=== PATIENT | female | born 1960 | race Two or more races ===

== ENCOUNTER 2020-09-27 06:20 | Day surgery (SDC) | payer OTHER ==
[~2020-09-27] VITALS: Ht 154.9 cm; Wt 59.4 kg
[2020-09-27] VITALS (11 sets, daily range): BP systolic 91–135; BP diastolic 59–82
[~2020-09-27 06:20] MED LIST: MULTI VITAMIN1 EACH ORAL; VITAMIN C500 M9 PO; VITAMIN D325 MC1 PO
[2020-09-27] MEDS ORDERED: LR 1000ml 1,000 ML IVLG SCH ×2 (07:00→08:45)
--- NOTE | 2020-09-27 07:16 | Short Stay Surgery H&P ---
History of Present Illness History of Present Illness Chief Complaint Patient is rema admitted for outpatient screening colonoscopy HPI Fiordaliza Juarez is a 60 year old female who was admitted on for Colon Screening Patient History Allergies: Coded Allergies: No Known Allergies (Unverified , 09/23/20) Medication History Scheduled Ascorbic Acid (Vitamin C), 500 MG PO DAILY, (Reported) Cholecalciferol (Vitamin D3) (Vitamin D3*), 25 MCG PO DAILY, (Reported) Multivitamin (Multi Vitamin Daily), 1 TAB ORAL DAILY, (Reported) Review of Systems Cardiovascular: Reports: no symptoms Respiratory: Reports: no symptoms Skeletal: Reports: no symptoms Gastrointestinal: Reports: no symptoms Genitourinary: Reports: no symptoms Neurologic: Reports: no symptoms Endocrine: Reports: no symptoms Hematologic: Reports: no symptoms Physical Exam Vital Signs Last Vital Signs Date Time Temp Pulse Resp B/P (MAP) Pulse Ox O2 Delivery O2 Flow Rate FiO2 09/27/20 06:46 Room Air 09/27/20 06:45 97.6 60 18 135/82 97 Skin: normal HENT: normal Heart: normal Lungs: normal Abdomen: normal Extremities: normal Genitourinary: normal Plan Attestation Are the patient's medical conditions optimized for surgery? Attestation Response: yes Stu Gtz MD Sep 27, 2020 07:16
--- NOTE | 2020-09-27 07:17 | Pre-Procedure Note/Attestation ---
Pre-Procedure Note/Attestation Complete Prior to Procedure Planned Procedure: left Procedure Narrative: Examination of the colon for screening Indications for Procedure Pre-Operative Diagnosis: R/O colon polyp and cancer Attestation I attest that I discussed the nature of the procedure; its benefits; risks and complications; and alternatives (and the risks and benefits of such alternative s), prior to the procedure, with the patient (or the patient's legal financial representative). I attest that, if there was a reasonable possibility of needing a blood transfusion, the patient (or the patient's legal financial representative) was given the [facility] standardized written summary, pursuant to the Olivier Hong Blood Safety Act ([place] Health and Safety Code # 1645, as amended). I attest that I re-evaluated the patient just prior to the surgery and that there has been no change in the patient's H&P, except as documented below: Stu Gtz MD Sep 27, 2020 07:16
--- NOTE | 2020-09-27 07:18 | Discharge Instructions ---
Discharge Instructions Discharge Instructions Follow up with: To see the doctor in office after 2 weeks For Congestive Heart Failure Reminder Report to your physician any weight gain of 5 pounds or more in one week. Stu Gtz MD Sep 27, 2020 07:18
[2020-09-27] MEDS ORDERED: fentaNYL 100 mcg/2 mL IV ONE (07:36)
[2020-09-27] MEDS ORDERED: Midazolam 2mg/2ml Inj ONE (07:36)
[2020-09-27] MEDS ORDERED: LR 1000ml ONE (08:00)
--- NOTE | 2020-09-27 08:36 | Anethesia Preoperative Eval ---
Anesthesia Pre-op PMH/ROS General Date of Evaluation: Sep 27, 2020 Time of Evaluation: 08:12 Anesthesiologist: Anshul ASA Score: ASA 2 Mallampati Score Class I : Soft palate, uvula, fauces, pillars visible Class II: Soft palate, uvula, fauces visible Class III: Soft palate, base of uvula visible Class IV: Only hard plate visible Mallampati Classification: Class II Surgeon: Tresa Diagnosis: Abdominal pain Surgical Procedure: Colonoscopy Anesthesia History: none Family History: no anesthesia problems Allergies: Coded Allergies: No Known Allergies (Unverified , 09/23/20) Medications: see eMAR Patient NPO?: Yes Past Medical History Cardiovascular: Denies: HTN, CAD, NV, valve dz, arrhythmia, other Gastrointestinal/Genitourinary: Reports: GERD; Denies: CRI, ESRD, other Neurologic/Psychiatric: Denies: dementia, CVA, depression/anxiety, TIA, other Endocrine: Denies: DM, hypothyroidism, steroids, other HEENT: Denies: cataract (L), cataract (R), glaucoma, MENTASTA (L), MENTASTA (R), other Hematology/Immune: Denies: anemia, DVT, bleeding disorder, other Musculoskeletal/Integumentary: Reports: OA; Denies: RA, DJD, DDD, edema, other PMH Narrative: as above PSxH Narrative: x3 Anesthesia Pre-op Phys. Exam Physician Exam Last Vital Signs Date Time Temp Pulse Resp B/P (MAP) Pulse Ox O2 Delivery O2 Flow Rate FiO2 09/27/20 06:46 Room Air 09/27/20 06:45 97.6 60 18 135/82 97 Constitutional: NAD Neurologic: CN 2-12 intact Cardiovascular: RRR, no M/R/G Respiratory: CTA Gastrointestinal: S/NT/ND Airway Exam Mallampati Score: Class II MO: full Neck: flexible ROM: full Teeth: intact Dentures: no upper, no lower Anesthesia Pre-op A/P Labs see chart Risk Assessment & Plan Assessment: ASA2 Plan: Gautam Moraes MD Sep 27, 2020 08:36
[2020-09-27] MEDS ORDERED: fentaNYL 100 mcg/2 mL IV PRN (08:45)
--- NOTE | 2020-09-27 08:56 | Immediate Post-Op Evaluation ---
Immediate Post-Op Evalulation Immediate Post-Op Evalulation Procedure: Colonoscopy Date of Evaluation: Sep 27, 2020 Time of Evaluation: 08:55 IV Fluids: 600 Blood Products: none Estimated Blood Loss: none Urinary Output: none Blood Pressure Systolic: 98 Blood Pressure Diastolic: 56 Pulse Rate: 62 Respiratory Rate: 20 O2 Sat by Pulse Oximetry: 98 Temperature (Fahrenheit): 97.6 Pain Score (1-10): 1 Nausea: No Vomiting: No Complications none Patient Status: awake, patent, none Hydration Status: adequate Gautam Landers MD Sep 27, 2020 08:56
--- NOTE | 2020-09-27 13:02 | 48 Hour Post Anesthesia Eval ---
Post Anesthesia Evaluation Procedure: Colonoscopy Date of Evaluation: Sep 27, 2020 Time of Evaluation: 13:01 Blood Pressure Systolic: 118 0: 72 Pulse Rate: 68 Respiratory Rate: 18 Temperature (Fahrenheit): 97.6 O2 Sat by Pulse Oximetry: 99 Airway: patent Nausea: No Vomiting: No Pain Intensity: 1 Hydration Status: adequate Cardiopulmonary Status: stable Mental Status/LOC: patient returned to baseline Follow-up Care/Observations: n/a Post-Anesthesia Complications: none Follow-up care needed: ready to discharge Gautam Landers MD Sep 27, 2020 13:02
--- NOTE | 2020-10-02 17:59 | Procedure Note ---
DATE OF PROCEDURE: 09/27/2020 SURGEON: Stu Gtz M.D. PROCEDURE: Total colonoscopy. PREOPERATIVE DIAGNOSIS: Screening colonoscopy. POSTOPERATIVE DIAGNOSES: 1. Evidence of minimal internal hemorrhoids. 2. Mild diverticulosis of the left colon and normal terminal ileum. MEDICATION USED: Per Dr. Landers, anesthesiologist. INSTRUMENT: GIF Olympus video colonoscope. DESCRIPTION OF PROCEDURE: The patient, after arriving in the endoscopy unit, was told about the risks and benefits of the procedure, which she accepted and signed informed consent. She was then put in the left lateral decubitus position. After adequate IV sedation, the scope was gently passed through the anal area, which revealed evidence of some prolapsed internal hemorrhoids. At this time, the scope was advanced into the rectum and retroflexion maneuver was applied and the area of the anal section was examined closely, which revealed evidence of minimal internal hemorrhoids, which were not friable. The rest of the anorectal area was completely normal. At this time, the scope was gradually passed through the rectosigmoid, which revealed evidence of a few small diverticular lesions only, and the rest of the left descending colon was completely normal. At this time, the scope reached to the splenic flexure, was guided into the transverse colon, reached the hepatic flexure, and finally was introduced to the right colon all the way to the base of the cecum. All these areas remained completely normal without any evidence of strictures, polyps, tumors, inflammatory process, ulceration, etc. At this point, the base of the cecum was reached and the appendiceal opening was also reviewed. Finally, an attempt was made to enter in the terminal ileum, which was successful, and this area was also completely normal without any evidence of inflammatory process. As the colon cleanup was good at this point, within 6 minutes, the scope was gradually pulled out and there was no other finding except what was stated earlier. The patient tolerated the procedure well and left the endoscopy room in a good condition. Stu Gtz M.D. DRSamir STOKES JOB#: [id number] CC:
== END 2020-09-27 10:15 | disposition home or self-care (01) ==
LOC: GAS 06:20
DX: Z12.11 Encounter for screening for malignant neoplasm of colon (principal); K64.8 Other hemorrhoids; K57.90 Diverticulosis of intestine, part unspecified, without perforation or abscess without bleeding; M19.90 Unspecified osteoarthritis, unspecified site; K21.9 Gastro-esophageal reflux disease without esophagitis
CPT/HCPCS: 45378; 94003; J2250; J2704; J3010; J7120; U0002; 94150